=== PATIENT | female | born 1970 | race Caucasian/White ===

== ENCOUNTER 2018-08-18 05:46 | Day surgery (SDC) | payer OTHER ==
[~2018-08-18] VITALS: Ht 158.8 cm; Wt 84.3 kg
[2018-08-18] VITALS (14 sets, daily range): BP systolic 105–163; BP diastolic 54–80; PULSE 72–91; RESP 18–29; Ht 158.8 cm; Wt 84.3 kg
[2018-08-18] MEDS ORDERED: CYCL10TA7 PO (06:48)
[2018-08-18] MEDS ORDERED: GABA300C16 PO (06:48)
[2018-08-18] MEDS ORDERED: HYDR-3980 PO (06:49)
[2018-08-18] MEDS ORDERED: NEOMYC/POLYMYX/BACIT 30 GM OINT ONE (07:02)
--- NOTE | 2018-08-18 07:22 | PREAC ---
Date/Time of Note Date/Time of Note DATE: 08/18/18 TIME: 07:20 Anesthesia Eval and Record Evaluation Time Pre-Procedure Interview DATE: 08/18/18 TIME: 07:20 Age 48 Sex female NPO: 8 hrs Preoperative diagnosis LEFT ANKLE HARDWARE PAIN, UNSTABLE SYNDESMOSIS Planned procedure LEFT ANKLE ARTHROSCOPY, EXTENSIVE DEBRIDEMENT, HARDWARE REMOVAL. ORIF SYNDESMOSIS Past Medical History Past Medical History: Includes GI: Obesity Surgery & Anesthesia Issues No known issue Meds Anticoagulation: No Beta La within 24 hr: No Reason Beta La not given: Pt. not on B-La Reported Medications Hydrocodone/Acetaminophen ([place] 10-325 Tablet) 1 Each Tablet, 1 EACH PO TID PRN for PAIN, TAB 08/18/18 Cyclobenzaprine Hcl* (Cyclobenzaprine Hcl*) 10 Mg Tablet, 10 MG PO Q8 PRN for MUSCLE SPASMS, #60 TAB 08/18/18 Gabapentin* (Gabapentin*) 300 Mg Capsule, 300 MG PO TID, #90 CAP 08/18/18 Meds reviewed: Yes Allergies Coded Allergies: No Known Drug Allergies (Verified Allergy, Unknown, 08/18/18) Allergies Reviewed: Yes Labs/Studies Labs Reviewed: Reviewed by anesthesiologist Result Diagram: 08/18/18 0617 Laboratory Tests 08/18/18 06:17 test: Negative Studies: ECG (SR), CXR (NAPD) Pre-procedure Exam Last vitals Vital Signs Date Temp Pulse Resp B/P (MAP) Pulse Ox O2 O2 Flow FiO2 Time Delivery Rate 08/18/18 97.3 91 18 105/54 94 Room Air 06:35 (71) Airway: Adequate mouth opening, Adequate thyromental dist Mallampati: Mallampati II Teeth: Normal Lung: Normal Heart: Normal ASA Physical Status ASA physical status: 2 Emergency: None Planned Anesthetic General/MAC: ETT Nerve block: Sciatic (left) Planned Pain Management Single shot nerve block, Parenteral pain med Pre-operative Attestations Prior to commencing anesthesia and surgery, the patient was re-evaluated, there was verification of: *The patient's identity *The results of appropriate recent lab work and preoperative vital signs *The above evaluation not changing prior to induction *Anesthetic plan, risk benefits, alternative and complications discussed with patient/family; questions answered; patient/family understands, accepts and wishes to proceed. Kemar Spears M.D. Aug 18, 2018 07:22
[2018-08-18] MEDS ORDERED: GLYCOPYRROLATE 0.4 MG INJ ONE (07:25)
[2018-08-18] MEDS ORDERED: CEFAZOLIN 1 GM INJ ONE (07:25)
[2018-08-18] MEDS ORDERED: ROCURONIUM 50 MG INJ ONE (07:25)
[2018-08-18] MEDS ORDERED: PROPOFOL 20 ML ONE (07:25)
[2018-08-18] MEDS ORDERED: NEOSTIGMINE 3 MG/3 ML SYRINGE ONE (07:25)
[2018-08-18] MEDS ORDERED: MIDAZOLAM 1 MG/ML 2 ML INJ ONE (07:26)
[2018-08-18] MEDS ORDERED: ONDANSETRON 4 MG INJ ONE (07:26)
[2018-08-18] MEDS ORDERED: FENTAnyl 50 MCG/ML VIAL ONE (07:26)
[2018-08-18] MEDS ORDERED: DEXAMETHASONE 4 MG/ML 5 ML INJ ONE (07:26)
[2018-08-18] MEDS ORDERED: ROPIVACAINE 0.5 % 30 ML VIAL ONE (07:26)
[2018-08-18] MEDS ORDERED: ALBUTEROL 0.083% (NEB) 2.5 MG/3 ML AMP HHN PRN (07:30)
[2018-08-18] MEDS ORDERED: HYDROmorphONE 1 MG/5 ML IV SYRINGE IV PRN ×3 (07:30)
[2018-08-18] MEDS ORDERED: FENTAnyl 50 MCG/ML VIAL IV PRN ×3 (07:30)
[2018-08-18] MEDS ORDERED: ONDANSETRON 4 MG INJ IV PRN (07:30)
[2018-08-18] MEDS ORDERED: IPRATROPIUM (NEB) 0.5 MG/2.5 ML AMP HHN PRN (07:30)
[2018-08-18] MEDS ORDERED: MEPERIDINE 25 MG INJ IV PRN (07:30)
[2018-08-18] MEDS ORDERED: DIPHENHYDRAMINE 50 MG INJ IV PRN (07:30)
[2018-08-18] MEDS ORDERED: TRIMETHOBENZAMIDE 100 MG/ML VIAL IM PRN (07:30)
[2018-08-18] MEDS ORDERED: hydrALAzine 20 MG INJ IV PRN (07:30)
[2018-08-18] MEDS ORDERED: LABETALOL HCL 20MG INJ IV PRN (07:30)
[2018-08-18] MEDS ORDERED: MIDAZOLAM 1 MG/ML 2 ML INJ IV PRN (07:30)
[2018-08-18] MEDS ORDERED: OXYCODONE/ACETAMINOPHEN (5/325) TAB PO PRN ×2 (07:30)
[2018-08-18] MEDS ORDERED: EPHEDrine SULFATE 50 MG/5 ML SYG IV PRN (07:30)
--- NOTE | 2018-08-18 07:38 | HPN ---
Date/Time of Note Date/Time of Note DATE: 08/18/18 TIME: 07:38 Interval H&P Admission Note Pt. seen H&P reviewed: No system changes JOHN LIGHT MD Aug 18, 2018 07:38
[2018-08-18] MEDS ORDERED: KETOROLAC 30 MG INJ IV SCH (08:00)
[2018-08-18] MEDS ORDERED: BUPIVACAINE 0.5% (SDV) 30 ML INJ ONE (09:06)
[2018-08-18] MEDS ORDERED: LABETALOL HCL 20MG INJ ONE (09:35)
--- NOTE | 2018-08-18 09:48 | OPR ---
Date/Time of Note Date/Time of Note DATE: 08/18/18 TIME: 09:34 Operative Report Procedure Date: Aug 18, 2018 Preoperative Diagnosis Left ankle synovitis Left ankle painful Hardware Postoperative Diagnosis Left ankle synovitis Left ankle painful Hardware Operation/Procedure Performed Left ankle arthroscopy with extensive debridement Left ankle hardware removal Surgeon Kevin Light MD Laboratory Animal Facility Supervisor Carter Anne MD Anesthesia Type: general, other (popliteal/saphenous) Anesthesiologist: Kemar Spears M.D. Tourniquet Time: 70 min at 250 mm Hg Estimated Blood Loss: minimal Transfusion none Specimen none Grafts/Implants none Complications none Pt Condition Post Procedure: stable Disposition: PACU Indications Patient is a 40-year-old female who sustained a left ankle fracture with syndesmotic disruption proximally 3 and half months ago treated by an outside physician. Patient presented me with ongoing ankle pain and pain over her hardware. Risk Note: Patient was explained the risks and benefits of surgery and the patient's [place] language including not limited to infection, bleeding, injury to blood vessels, nerves, ligaments or tendons. Risks of anesthesia, deep vein thrombosis and need for reduce future surgery. Patient acknowledged these risk by signing the surgical consent form. Procedure Description The patient was met in the preoperative holding area, marked with the correct operative extremity confirmed with both patient and consent. The patient was then brought back in the operative theater, placed supine on operative table, given preoperative antibiotics and preoperative regional block anesthesia. The patient was then placed in the arthroscopic thigh caputo with all bony prominences well padded with a nonsterile tourniquet placed on the operative extremity. The patient was then prepped and draped in the normal sterile fashion. All parties in the room did a timeout and everyone agreed it was the correct patient, and extremity and procedure. Initial distraction was placed across the joint and the superficial peroneal nerve had been marked out prior to distraction, and using extreme caution to avoid any injury to the neurovascular structures, the anteromedial, anterolateral, and posterolateral portals were created in the standard fashion. The arthroscope was brought into the ankle and a 21-point exam was performed s howing extensive hemorrhagic scar tissue and synovitis in the ankle with extensive scar tissue in both the medial, lateral, posterior and anterior gutters. After thorough debridement of the anterior medial, lateral, posterior and anterior gutters, the ankle was irrigated thoroughly with normal saline and the arthroscopes were removed. At this point, the thigh caputo was removed and the patient was well padded under both extremities and patient was then reprepped and draped, and all gloves and instruments were changed. Attention was then turned initially to the distal fibular fracture. An incision was made over the the fibula. The incision was taken down to the fibula with care taken to avoid injury to the neurovascular structures. The screw was re moved. Once this was shown, the wound was irrigated thoroughly. A manual external rotation stress xray was performed showing no syndesmosis widening. Attention was then brought over to the medial aspect of the ankle and incision was taken down over the medial aspect of the ankle where both screws were identified and removed. All wounds were thoroughly irrigated and closed with initially 2-0 Vicryl, followed by 3-0 Monocryl followed by 3-0 nylon in a vertical mattress fashion. All wounds were dressed with Xeroform, antibiotic ointment, 4 x 4s, 5 ABDs were placed and the patient was placed in a well-padded short leg splint. Tourniquet had been brought down prior to this and hemostasis had been achieved prior to the wound closure. The wounds were irrigated thoroughly prior to closure as well. All sponge and needle counts were correct. Patient was brought to the PACU in a stable condition. All toes were warm and well-perfused. CUSTOMER ADVOCATE NOTE: There was a need for an orthopedic grants and contracts assistant during this case in order to hold the limb in the proper position and assist with arthroscopy. Without the use of an business banking sales assistant the case would have been extensively longer and more complex. KEVIN LIGHT MD Aug 18, 2018 09:48
[2018-08-18] MEDS ORDERED: morphine 2 MG INJ IV PRN (16:01)
--- NOTE | 2018-08-19 12:30 | PAC ---
Date/Time of Note Date/Time of Note DATE: 08/19/18 TIME: 12:29 Post-Anesthesia Notes Post-Anesthesia Note Last documented vital signs Vital Signs Date Temp Pulse Resp B/P (MAP) Pulse Ox O2 O2 Flow FiO2 Time Delivery Rate 08/18/18 98.6 12:25 08/18/18 77 18 140/67 98 Room Air 10:45 (91) 08/18/18 6.0 09:41 Activity: WNL Respiratory function: WNL Cardiovascular function: WNL Mental status: Baseline Pain reasonably controlled: Yes Hydration appropriate: Yes Nausea/Vomiting absent: Yes Kemar Spears M.D. Aug 19, 2018 12:29
== END 2018-08-18 11:30 | disposition home or self-care (01) ==
LOC: SDS 05:46
PROVIDERS: ATTEND Orthopaedic Surgery
DX: T84.84XD Pain due to internal orthopedic prosthetic devices, implants and grafts, subsequent encounter (principal); Y83.8 Other surgical procedures as the cause of abnormal reaction of the patient, or of later complication, without mention of misadventure at the time of the procedure; M65.872 Other synovitis and tenosynovitis, left ankle and foot
CPT/HCPCS: 20680; 29898; 73610; 82306; 82962; 85025; 88300; J0690; J1100; J2250; J2405; J2710; J2795; J3010; Z7512; Z7610